=== PATIENT | male | born 1970 | race Two or more races ===

== ENCOUNTER 2018-01-01 14:30 | Observation (INO) ==
[2018-01-01] MEDS ORDERED: ONDANSETRON 4 MG/2 ML VIAL IV STA (15:27)
[2018-01-01] MEDS ORDERED: SODIUM CHLORIDE 0.9% 1,000 ML IV STA (15:27)
[2018-01-01] MEDS ORDERED: HYDROmorphone 2 MG/1 ML VIAL IV STA (15:28)
[2018-01-01] MEDS ORDERED: HYDROmorphone 2 MG/1 ML VIAL ONE (15:46)
[2018-01-01] MEDS ORDERED: ONDANSETRON 4 MG/2 ML VIAL ONE (15:46)
[2018-01-01] MEDS ORDERED: ACETAMINOPHEN 325 MG TABLET PO PRN (15:51)
[2018-01-01] MEDS ORDERED: ONDANSETRON 4 MG/2 ML VIAL IV PRN (15:51)
[2018-01-01] MEDS ORDERED: PROMETHAZINE 25 MG/1 ML VIAL IM PRN (15:51)
[2018-01-01] MEDS ORDERED: HYDROmorphone 2 MG/1 ML VIAL IV PRN (15:52)
[2018-01-01] MEDS ORDERED: DEXTROSE 50% 25 GM/50 ML VIAL IV PRN (15:52)
[2018-01-01] MEDS ORDERED: GLUCAGON 1 MG VIAL IM PRN (15:52)
[2018-01-01] MEDS: INSULIN REGULAR 100 UNIT/ML SUBCUT SCH ×2 (18:25→20:29)
[2018-01-01] MEDS: TAMSULOSIN 0.4 MG CAPSULE PO SCH (18:25)
[2018-01-01] MEDS ORDERED: diphenhydrAMINE 50 MG/1 ML VIAL IV PRN (19:24)
[2018-01-01] MEDS: SODIUM CHLORIDE 0.9% 1,000 ML IV SCH (20:21)
[2018-01-01] MEDS: KETOROLAC 15 MG/1 ML VIAL IV SCH (20:21)
[2018-01-02] MEDS: KETOROLAC 15 MG/1 ML VIAL IV SCH ×3 (02:23→14:11)
[2018-01-02] MEDS: SODIUM CHLORIDE 0.9% 1,000 ML IV SCH ×2 (02:33→14:33)
[2018-01-02 02:58] LABS: Apearance,Urine CLEAR (Clear); Bilirubin,Urine Negative (Negative); Blood, Urine Moderate mg/dL (Negative); Glucose,Urine (UA) Negative (Negative); Ketones,Urine Negative (Negative); Nitrite,Urine Negative (Negative); Protein,Urine Negative; Urine Color Colorless (Yellow); Urine Specific Gravity 1.002 (1.001-1.035); Urine Urobilinogen < 2.0 EU/DL (0.2-1.0); WBC,Urine <1 /HPF (0-6)
[2018-01-02] MEDS ORDERED: cefTRIAXone 1,000 MG in SYRINGE 1 EACH IV ONE (07:19)
[2018-01-02 07:20] LABS: Basophils % 0.3 % (0.0-0.8); Eosinophils # 0.2 10*3/uL (0.0-0.87); Eosinophils % 1.8 % (0.00-10.9); Hematocrit 37.1 VOL% (42.0-52.0); Immature Granulocytes % 0.3 %; Immature Granulocytes Absolute 0.03 #; Lymphocytes # 2.7 10*3/uL (1.4-4.0); Lymphocytes % 23.2 % (21.2-54.2); Mean Corpuscular Hemoglobin 29 PG (27-34); Mean Corpuscular Volume 82.4 FL (87-102); Mean Platelet Volume 11.3 FL (9.6-12.0); Monocytes # 0.7 10*3/uL (0.11-0.8); Monocytes % 6.1 % (1.7-12.7); Neutrophils % 68.3 % (38.7-73.9); Platelet Count 278 T/CUMM (130-400); Red Cell Distribution Width 13.2 % (9.3-17.3); White Blood Count 11.8 T/CUMM (4-12)
[2018-01-02 07:32] LABS: Calcium 8.4 MG/DL (8.5-10.1); Osmolality,Calculated 280.3 MOS/KG (273-304); Potassium 3.5 MMOL/L (3.5-5.1)
[2018-01-02] MEDS: INSULIN REGULAR 100 UNIT/ML SUBCUT SCH ×2 (08:07→14:14)
[2018-01-02] MEDS: TAMSULOSIN 0.4 MG CAPSULE PO SCH (09:00)
[2018-01-02] MEDS ORDERED: LOSARTAN 50 MG TABLET PO SCH (09:00)
[2018-01-02] MEDS ORDERED: LIDOCAINE 2% TOP JELLY 20 ML VIAL INTRAURETH ONE (12:31)
[2018-01-02] MEDS ORDERED: PROPOFOL 200 MG/20 ML VIAL IV ONE (13:04)
[2018-01-02] MEDS ORDERED: DEXAMETHASONE 4 MG/1 ML VIAL ONE (13:05)
[2018-01-02] MEDS ORDERED: PHENYLEPHRINE 1 MG/10 ML SYRINGE IV ONE (13:05)
[2018-01-02] MEDS ORDERED: ONDANSETRON 4 MG/2 ML VIAL ONE (13:05)
[2018-01-02] MEDS ORDERED: fentaNYL 100 MCG/2 ML VIAL ONE ×2 (13:05)
[2018-01-02] MEDS ORDERED: SEVOFLURANE 1 UNIT/15 MINUTE INH ONE (13:05)
[2018-01-02] MEDS ORDERED: MIDAZOLAM 2 MG/2 ML VIAL ONE (13:05)
[2018-01-02] MEDS ORDERED: GLYCOPYRROLATE 0.4 MG/2 ML VIAL ONE (13:05)
[2018-01-02] MEDS ORDERED: ROCURONIUM 100 MG/10 ML VIAL IV ONE (13:06)
[2018-01-02] MEDS ORDERED: NEOSTIGMINE 10 MG/10 ML VIAL ONE ×2 (13:06→13:07)
[2018-01-02] MEDS ORDERED: LACTATED RINGERS 1,000 ML IV ONE (13:06)
[2018-01-02 16:01] VITALS: BP 115/89
[2018-01-08 13:11] LABS: Stone Source Kidney
== END 2018-01-02 16:05 | disposition home or self-care (01) ==
LOC: EDBD → EDUNIT# → N.EDINP 14:30 → N.ED 14:30 → N.5E 18:10
PROVIDERS: ADMIT Surgery; ATTEND Surgery